=== PATIENT | female | born 2000 | race Caucasian/White ===

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

== ENCOUNTER 2019-01-25 10:11 | Emergency (ER) | payer MEDICAID ==
[2019-01-25 10:16] VITALS: BP 126/67
--- NOTE | 2019-01-25 10:25 | ER Document Report ---
HPI - HPI Time Seen by Provider: 01/25/19 10:20 Pain Level: 2 Notes: Patient is a 18-year-old female no significant past medical history who presents complaining of nasal congestion/discharge, intermittent right ear pain, and pressure on the right side of her face that began yesterday. She has been able to eat and drink without difficulty. She is urinating normally and having normal bowel movements. Denies drug allergies. She has not been using any ncgd-[id number] meds for her symptoms. Patient will need a work note today. Denies any headache, fever, neck pain, sore throat, chest pain, palpitations, syncope, cough, shortness of breath, wheeze, dyspnea, abdominal pain, nausea/vomiting/diarrhea, urinary retention, dysuria, hematuria, or rash. - ROS Systems Reviewed and Negative: Yes All other systems reviewed and negative - REPRODUCTIVE Reproductive: DENIES: : Past Medical History - Social History Smoking Status: Never Smoker Family History: Reviewed & Not Pertinent Pulmonary Medical History: Reports: Hx Asthma Renal/ Medical History: Denies: Hx Peritoneal Dialysis GI Medical History: Reports: Hx Gastroesophageal Reflux Disease Vertical Provider Document - CONSTITUTIONAL Agree With Documented VS: Yes Notes: PHYSICAL EXAMINATION: GENERAL: Well-appearing, well-nourished and in no acute distress. A&Ox4. Answers questions appropriately. Moves comfortably w/o notable distress HEAD: Atraumatic, normocephalic. EYES: Pupils equal round and reactive to light, extraocular movements intact, sclera anicteric, conjunctiva are normal. ENT: EAC clear b/l. TM's intact b/l without erythema, fluid, or perforation. Nares patent and with clear discharge. oropharynx no erythema without exudates. No tonsilar hypertrophy without erythema or exudate. No palatine shift. Uvula midline. No tongue protrusion. No drooling, hoarseness, or airway compromise. Moist mucous membranes. No sinus tenderness. NECK: Normal range of motion, supple without lymphadenopathy. No rigidity/meningismus. LUNGS: Breath sounds clear to auscultation bilaterally and equal. No wheezes rales or rhonchi. No retractions HEART: Regular rate and rhythm without murmurs, rubs, gallops. NEUROLOGICAL: Normal speech, normal gait. PSYCH: Normal mood, normal affect. SKIN: Warm, Dry, normal turgor, no rashes or lesions noted. - INFECTION CONTROL TRAVEL OUTSIDE OF THE [place] IN LAST 30 DAYS: No Course - Re-evaluation Re-evalutation: 01/25/19 10:26 Patient is an afebrile, well-hydrated, 18-year-old female who presents with acute URI, suspect viral. I do suspect her right ear pain to be from eustachian tube dysfunction. There is no evidence of other superimposed infection. Vitals are acceptable without significant tachycardia, tachypnea, or hypoxia. PE is otherwise unremarkable. Patient is nontoxic-appearing and is tolerating p.o. without difficulty. No further work-up warranted. Low suspicion for any meningitis, sepsis, peritonsillar/pharyngeal abscess, respiratory compromise, severe dehydration, otitis media, mastoiditis, or other emergent systemic condition at this time. Patient is aware this condition can change from initial presentation and she needs to monitor symptoms closely. Conservative measures otherwise for symptoms. Recheck with your PCM in 3-5 days. Return to the ED with any worsening/concerning symptoms otherwise as reviewed in discharge. Patient is in agreement. - Vital Signs Vital signs: Temp Pulse Resp BP Pulse Ox 98.1 F 93 H 16 126/67 H 99 01/25/19 10:15 01/25/19 10:15 01/25/19 10:15 01/25/19 10:15 01/25/19 10:15 Discharge - Discharge Clinical Impression: Acute URI Condition: Stable Disposition: HOME, SELF-CARE Instructions: Upper Respiratory Illness ([facility]) Additional Instructions: Maintain adequate fluid intake tylenol/ibuprofen as needed alternating every 3 hours for fever/body ache over the counter cold medication as needed for symptoms Humidified air may help Wash your hands regularly Wear a mask if/when coughing F/u: with your PCM in 3-5 days for a recheck Return to the ED with any fever, altered mental status/behavior, chest pain, palpitations, syncope, headache, neck pain/stiffness, shortness of breath, chest pains, wheezing, drooling, trouble swallowing/breathing, abdominal pain, n/v/d, rash, or worsening/concerning symptoms otherwise. Forms: Elevated Blood Pressure, Return to Work Referrals: REBECCA LIMA MD [Primary Care Provider] - Follow up as needed
== END 2019-01-25 10:30 | disposition home or self-care (01) ==
LOC: ER 10:11
DX: J06.9 Acute upper respiratory infection, unspecified (principal); R09.81 Nasal congestion; R09.89 Other specified symptoms and signs involving the circulatory and respiratory systems; H92.01 Otalgia, right ear; J45.909 Unspecified asthma, uncomplicated
CPT/HCPCS: 99283

== ENCOUNTER 2019-06-24 21:50 | Inpatient (IN) | payer MEDICAID ==
[2019-06-24] MEDS ORDERED: ONDANSETRON 4 MG TAB.RAPDIS PO ONE (22:18)
[2019-06-24] MEDS ORDERED: ACETAMINOPHEN 325 MG TABLET PO ONE (22:18)
--- NOTE | 2019-06-24 22:21 | ER Document Report ---
ED Medical Screen (RME) - General Chief Complaint: Fever Stated Complaint: FEVER/STOMACH CRAMPS Time Seen by Provider: 06/24/19 22:16 Primary Care Provider: REBECCA LIMA MD [Primary Care Provider] - Follow up as needed Notes: Patient is a 18-year-old female who presents the emergency department with a chief complaint of lower abdominal pain. Patient states that it is on both sides. She started to have her pain couple of days ago. She has been taking ibuprofen to help with her pain. She also states that she has had an on-and-off fever. Exam: Soft mildly tender mid lower abdomen. I have greeted and performed a rapid initial assessment of this patient. A comprehensive ED assessment and evaluation of the patient, analysis of test results and completion of medical decision making process will be conducted by an additional ED providers. TRAVEL OUTSIDE OF THE [place] IN LAST 30 DAYS: No - Related Data Allergies/Adverse Reactions: No Known Allergies Allergy (Verified 01/25/19 10:13) Past Medical History Pulmonary Medical History: Reports: Hx Asthma Renal/ Medical History: Denies: Hx Peritoneal Dialysis GI Medical History: Reports: Hx Gastroesophageal Reflux Disease Physical Exam - Vital signs Vitals: Temp Pulse Resp BP Pulse Ox 102.6 F H 112 H 20 122/56 L 97 06/24/19 22:04 06/24/19 22:04 06/24/19 22:04 06/24/19 22:04 06/24/19 22:04 Course - Vital Signs Vital signs: Temp Pulse Resp BP Pulse Ox 102.6 F H 112 H 20 122/56 L 97 06/24/19 22:04 06/24/19 22:04 06/24/19 22:04 06/24/19 22:04 06/24/19 22:04 Doctor's Discharge - Discharge Referrals: REBECCA LIMA MD [Primary Care Provider] - Follow up as needed
[2019-06-24 23:13] LABS: ABSOLUTE LYMPHOCYTES (AUTO) 1.7 10^3/uL (0.5-4.7); ABSOLUTE MONOCYTES (AUTO) 0.7 10^3/uL (0.1-1.4); ABSOLUTE NEUT (AUTO) 14.3 10^3/uL (1.7-8.2); BASOPHILS % (AUTO) 0.2 % (0-2); EOSINOPHILS % (AUTO) 0.1 % (0-6); HEMATOCRIT 38.3 % (36.0-47.0); LYMPHOCYTES % (AUTO) 10.1 % (13-45); MEAN CORPUSCULAR VOLUME 88 fl (80-97); MONOCYTES % (AUTO) 4.2 % (3-13); PLATELET COUNT 386 10^3/uL (150-450); RED BLOOD COUNT 4.34 10^6/uL (3.72-5.28); RED CELL DISTRIBUTION WIDTH 13.3 % (11.5-14.0); SEGMENTED NEUTROPHILS % (AUTO) 85.4 % (42-78); TOTAL CELLS COUNTED % (AUTO) 100 %; WHITE BLOOD COUNT 16.7 10^3/uL (4.0-10.5)
[2019-06-24 23:20] LABS: APPEARANCE,URINE CLOUDY; BILIRUBIN,URINE NEGATIVE (NEGATIVE); COLOR,URINE AMBER; GLUCOSE, URINE NEGATIVE (NEGATIVE); KETONES,URINE NEGATIVE (NEGATIVE); LEUKOCYTE ESTERASE,URINE SMALL (NEGATIVE); NITRITE,URINE NEGATIVE (NEGATIVE); PROTEIN,URINE 30 mg/dL (NEGATIVE); URINE SPECIFIC GRAVITY 1.026
[2019-06-24 23:31] LABS: ALBUMIN 3.9 g/dL (3.7-5.6); ALKALINE PHOSPHATASE 83 U/L (50-135); ANION GAP 12 (5-19); ASPARTATE AMINO TRANSFERASE 24 U/L (5-30); BILIRUBIN,DIRECT 0.3 mg/dL (0.0-0.4); BILIRUBIN,TOTAL 0.6 mg/dL (0.2-1.3); BLOOD UREA NITROGEN 9 mg/dL (7-20); CALCIUM 9.6 mg/dL (8.4-10.2); CARBON DIOXIDE 27 mmol/L (22-30); CHLORIDE 99 mmol/L (98-107); GLUCOSE 100 mg/dL (75-110); POTASSIUM 3.8 mmol/L (3.6-5.0); TOTAL PROTEIN 6.9 g/dL (6.3-8.2)
[2019-06-25] MEDS ORDERED: NORMAL SALINE 1000 ML 1,000 ML IV ONE (04:19)
[2019-06-25] MEDS ORDERED: KETOROLAC TROMETHAMINE INJ/PF 30 MG/1 ML SDV IV ONE (04:20)
[2019-06-25] MEDS ORDERED: ONDANSETRON HCL INJ/PF 4 MG/2 ML SDV IV ONE (04:20)
--- NOTE | 2019-06-25 04:26 | ER Document Report ---
ED GI/ - General Chief Complaint: Abdominal Pain Stated Complaint: FEVER/STOMACH CRAMPS Time Seen by Provider: 06/24/19 22:16 Mode of Arrival: Ambulatory Information source: Patient Notes: 18-year-old female presented to ED for complaint of lower abdominal pain nausea vomiting fever diarrhea. She states the cramping started last week for fever nausea vomiting and diarrhea started this week. TRAVEL OUTSIDE OF THE [place] IN LAST 30 DAYS: No - HPI Patient complains to provider of: Abdominal pain, Diarrhea, Vomiting, Other - Fe vince Onset: Other - 2 days Timing/Duration: Intermittent Quality of pain: Cramping Severity at maximum: Moderate Severity in ED: Moderate Pain Level: 3 Location: LLQ, RLQ LMP: Week ago Associated symptoms: Chills, Diarrhea, Fever, Nausea, Vomiting Exacerbated by: Denies Relieved by: Denies Similar symptoms previously: Yes Recently seen / treated by doctor: No - Related Data Allergies/Adverse Reactions: No Known Allergies Allergy (Verified 01/25/19 10:13) Home Medications: motrin Past Medical History - General Information source: Patient - Social History Smoking Status: Never Smoker Chew tobacco use (# tins/day): No Smoking Education Provided: No Frequency of alcohol use: None Drug Abuse: None Lives with: Family Family History: Reviewed & Not Pertinent Patient has suicidal ideation: No Patient has homicidal ideation: No - Past Medical History Cardiac Medical History: Reports: None Pulmonary Medical History: Reports: Hx Asthma EENT Medical History: Reports: None Neurological Medical History: Reports: None Endocrine Medical History: Reports: None Renal/ Medical History: Reports: None Malignancy Medical History: Reports: None GI Medical History: Reports: Hx Gastroesophageal Reflux Disease Musculoskeletal Medical History: Reports None Skin Medical History: Reports None Psychiatric Medical History: Reports: None Traumatic Medical History: Reports: None Infectious Medical History: Reports: None Surgical Hx: Negative Past Surgical History: Reports: None - Immunizations Immunizations up to date: Yes Hx Diphtheria, Pertussis, Tetanus Vaccination: Yes Review of Systems - Review of Systems Constitutional: Chills, Fever, Recent illness Cardiovascular: No symptoms reported Respiratory: No symptoms reported Gastrointestinal: Abdominal pain, Diarrhea, Nausea, Vomiting Genitourinary: No symptoms reported Female Genitourinary: No symptoms reported Musculoskeletal: No symptoms reported Skin: No symptoms reported Hematologic/Lymphatic: No symptoms reported Neurological/Psychological: No symptoms reported -: Yes All other systems reviewed and negative Physical Exam - Vital signs Vitals: Temp Pulse Resp BP Pulse Ox 102.6 F H 112 H 20 122/56 L 97 06/24/19 22:04 06/24/19 22:04 06/24/19 22:04 06/24/19 22:04 06/24/19 22:04 Interpretation: Normal - General General appearance: Appears well, Alert - HEENT Head: Normocephalic, Atraumatic Eyes: Normal Pupils: PERRL - Respiratory Respiratory status: No respiratory distress Chest status: Nontender Breath sounds: Normal Chest palpation: Normal - Cardiovascular Rhythm: Regular Heart sounds: Normal auscultation Murmur: No - Abdominal Inspection: Normal Distension: No distension Bowel sounds: Normal Tenderness: Tender - Right and left lower quadrant worse on the right Organomegaly: No organomegaly - Genitourinary External exam: Normal Speculum exam: Vaginal discharge Vaginal bleeding: None Bimanuel exam: Normal - Back Back: Normal, Nontender - Extremities General upper extremity: Normal inspection, Nontender, Normal color, Normal ROM, Normal temperature General lower extremity: Normal inspection, Nontender, Normal color, Normal ROM, Normal temperature, Normal weight bearing. No: Donte's sign - Neurological Neuro grossly intact: Yes Cognition: Normal Orientation: AAOx4 [place] Coma Scale Eye Opening: Spontaneous Brianna Coma Scale Verbal: Oriented [place] Coma Scale Motor: Obeys Commands Brianna Coma Scale Total: 15 Speech: Normal Motor strength normal: LUE, RUE, LLE, RLE Sensory: Normal - Psychological Associated symptoms: Normal affect, Normal mood - Skin Skin Temperature: Warm Skin Moisture: Dry Skin Color: Normal Course - Re-evaluation Re-evalutation: 06/25/19 09:06 Dr. Summers consulted due to the bilateral ovarian abscesses. Patient was admitted GC and chlamydia were sent but were not resulted yet. Patient did come in with elevated fever of 102.6 had elevated white count CT showed the abscesses. Patient did not have ovarian or cervical tenderness on exam after she was treated with Toradol. - Vital Signs Vital signs: Temp Pulse Resp BP Pulse Ox 98.8 F 83 16 105/71 98 06/25/19 00:52 06/25/19 00:52 06/25/19 00:52 06/25/19 00:52 06/25/19 00:52 - Laboratory Result Diagrams: 06/24/19 22:20 06/24/19 22:20 Laboratory results interpreted by me: 06/24/19 06/24/19 22:20 22:20 WBC 16.7 H Lymph % (Auto) 10.1 L Absolute Neuts (auto) 14.3 H Seg Neutrophils % 85.4 H Urine Protein 30 H Urine Urobilinogen 4.0 H Ur Leukocyte Esterase SMALL H - Diagnostic Test Radiology reviewed: Image reviewed, Reports reviewed Discharge - Discharge Clinical Impression: Bilateral tubal abscesses Disposition: ADMITTED INPATIENT Admitting Provider: [facility] Unit Admitted: Medical Floor - 2ND FLOOR
[2019-06-25 05:49] LABS: A TYPE INFLUENZA AG NEGATIVE (NEGATIVE); B INFLUENZA AG NEGATIVE (NEGATIVE)
--- NOTE | 2019-06-25 06:27 | RADIOLOGY REPORT (SQ) ---
EXAM DESCRIPTION: CT ABDOMEN PELVIS WITH IV CONTRAST COMPLETED DATE/TME: 06/25/2019 04:20 CLINICAL HISTORY: 18 years Female, Right lower quadrant abdominal pain fever nausea a Comparison: None. Technique: IV contrast. Coronal and sagittal reformat. This exam was performed according to our departmental dose-optimization program, which includes automated exposure control, adjustment of the mA and/or kV according to patient size and/or use of iterative reconstruction technique. [facility]: Dose Right [facility]: CareDose [facility]: Dose Right [facility]: Teradose 4D [facility]: ChurchPairing LIMITATIONS: None Findings: Inflamed complex cystic collections of the pelvis measures 7 x 8.8 x 2.5 cm at the right paracentral pelvis and 2.6 x 2.3 x 1.8 cm at the left paracentral pelvis adjacent to the uterus probably due to tubo-ovarian abscess/PID. Consider CT surveillance using IV and oral contrast. No ascites. No pneumoperitoneum. Likely normal appendix partially discerned. No gross evidence of gallbladder inflammation, hepatobiliary obstruction, or portal vein defect. No bowel obstruction. No hydronephrosis or hydroureter. No renal/ureteral stone. No evidence of abdominal aortic aneurysm. No gross evidence of thecal sac/cord or nerve root compression. Inferior thorax, liver, gallbladder, pancreas, spleen, adrenals, renal system, gastrointestinal tract, lymphatics, vasculature, and musculoskeleton appear otherwise unremarkable. IMPRESSION: Inflamed complex cystic collections of the pelvis measures 7 x 8.8 x 2.5 cm predominantly at the right paracentral pelvis uterus probably due to tubo-ovarian abscess/PID. Consider CT surveillance using IV and oral contrast.pelvis probably due to tubo-ovarian abscess/PID.
[2019-06-25 07:42] LABS: T.VAGINALIS (WET MOUNT) NO TRICHOMONAS SEEN; WBCS (WET MOUNT) 1+ WBCS SEEN; YEAST (WET MOUNT) NO YEAST SEEN
[2019-06-25 07:43] LABS: BACTERIA (WET MOUNT) 3+ BACTERIA SEEN; EPITHELIALS (WET MOUNT) 3+ EPITHELIALS SEEN; RBCS (WET MOUNT) FEW RBCS SEEN
[2019-06-25] MEDS ORDERED: RINGERS SOLUTION,LACTATED 1,000 ML IV ONE (08:08)
[2019-06-25] MEDS ORDERED: OXYCODONE-ACETAMINOPHEN 5-325 MG TABLET PO PRN (08:21)
[2019-06-25] MEDS ORDERED: ACETAMINOPHEN 325 MG TABLET PO PRN (08:21)
[2019-06-25] MEDS ORDERED: IBUPROFEN 800 MG TABLET PO SCH (08:30)
[2019-06-25] MEDS ORDERED: CEFOXITIN INJ 2 GM VIAL IV SCH (08:30)
[2019-06-25 09:08] LABS: CHLAM PCR NOT DETECTED (NOT DETECT)
--- NOTE | 2019-06-25 10:29 | PDOC H&P ---
History of Present Illness Admission Date/PCP: 06/25/19 07:40 REBECCA LIMA MD Patient complains of: Pelvic pain History of Present Illness: DON FRENCH is a 18 year old female G0 She presents to the ER with pelvic pain and was found to have TOAs. She is a dmitted for IV antibiotics. Past Medical History LMP: Week ago Gynecological Infection: No Cardiac Medical History: Reports: None Pulmonary Medical History: Reports: Asthma EENT Medical History: Reports: None Neurological Medical History: Reports: None Endocrine Medical History: Reports: None Renal/ Medical History: Reports: None Malignancy Medical History: Reports: None GI Medical History: Reports: Gastroesophageal Reflux Disease Musculoskeltal Medical History: Reports: None Skin Medical History: Reports: None Psychiatric Medical History: Reports: None Traumatic Medical History: Reports: None Infectious Medical History: Reports: None Past Surgical History Past Surgical History: Reports: None Social History Lives with: Family Smoking Status: Never Smoker - Advance Directive Resuscitation Status: Full Code Family History Family History: Reviewed & Not Pertinent Parental Family History Reviewed: Yes Children Family History Reviewed: Yes Sibling(s) Family History Reviewed.: Yes Medication/Allergy Home Medications: No Home Medications 06/25/19 Allergies/Adverse Reactions: No Known Allergies Allergy (Verified 01/25/19 10:13) Physical Exam - Physical Exam Vital Signs: Temp Pulse Resp BP Pulse Ox 98.6 F 88 16 114/57 L 98 06/25/19 09:17 06/25/19 09:17 06/25/19 09:17 06/25/19 09:17 06/25/19 09:17 Intake & Output 06/24/19 06/25/19 06/26/19 06:59 06:59 06:59 Intake Total 1000 Balance 1000 Weight 68 kg General appearance: PRESENT: no acute distress, cooperative Head exam: PRESENT: atraumatic Cardiovascular exam: PRESENT: RRR. ABSENT: diastolic murmur, rubs, systolic murmur Pulses: PRESENT: normal dorsalis pedis pul, +2 pedal pulses bilateral Vascular exam: PRESENT: normal capillary refill GI/Abdominal exam: PRESENT: normal bowel sounds, soft. ABSENT: distended, guarding, mass, organolmegaly, rebound, tenderness Rectal exam: PRESENT: deferred Gentrourinary exam: PRESENT: other - deferred. see CT scan Extremities exam: PRESENT: full ROM. ABSENT: calf tenderness, clubbing, pedal edema Musculoskeletal exam: PRESENT: ambulatory Neurological exam: PRESENT: alert, awake, oriented to person, oriented to place, oriented to time, oriented to situation, CN II-XII grossly intact. ABSENT: motor sensory deficit Psychiatric exam: PRESENT: appropriate affect, normal mood. ABSENT: homicidal ideation, suicidal ideation Skin exam: PRESENT: dry, intact, warm. ABSENT: cyanosis, rash Result Laboratory Results: 06/24/19 22:20 06/24/19 22:20 06/24/19 06/24/19 06/24/19 22:20 22:20 22:20 WBC 16.7 H RBC 4.34 Hgb 13.0 Hct 38.3 MCV 88 MCH 30.0 MCHC 34.0 RDW 13.3 Plt Count 386 Seg Neutrophils % 85.4 H Sodium 138.3 Potassium 3.8 Chloride 99 Carbon Dioxide 27 Anion Gap 12 BUN 9 Creatinine 0.59 Est GFR ( Amer) > 60 Glucose 100 Lactic Acid Calcium 9.6 Total Bilirubin 0.6 AST 24 Alkaline Phosphatase 83 Total Protein 6.9 Albumin 3.9 Lipase 26.2 Serum HCG, Qual Urine Color TAVARES Urine Appearance CLOUDY Urine pH 7.0 Ur Specific [place] 1.026 Urine Protein 30 H Urine Glucose (UA) NEGATIVE Urine Ketones NEGATIVE Urine Blood NEGATIVE Urine Nitrite NEGATIVE Ur Leukocyte Esterase SMALL H Urine WBC (Auto) 10 Urine RBC (Auto) 7 06/24/19 06/25/19 22:20 09:04 WBC RBC Hgb Hct MCV MCH MCHC RDW Plt Count Seg Neutrophils % Sodium Potassium Chloride Carbon Dioxide Anion Gap BUN Creatinine Est GFR ( Amer) Glucose Lactic Acid 0.6 L Calcium Total Bilirubin AST Alkaline Phosphatase Total Protein Albumin Lipase Serum HCG, Qual NEGATIVE Urine Color Urine Appearance Urine pH Ur Specific [place] Urine Protein Urine Glucose (UA) Urine Ketones Urine Blood Urine Nitrite Ur Leukocyte Esterase Urine WBC (Auto) Urine RBC (Auto) Impressions: Abdomen/Pelvis CT 06/25/19 04:20 IMPRESSION: Inflamed complex cystic collections of the pelvis measures 7 x 8.8 x 2.5 cm predominantly at the right paracentral pelvis uterus probably due to tubo-ovarian abscess/PID. Consider CT surveillance using IV and oral contrast.pelvis probably due to tubo-ovarian abscess/PID. Assessment & Plan - Diagnosis (1) Tubo-ovarian abscess Is this a current diagnosis for this admission?: Yes - Plan Summary Plan Summary: Plan IV antibiotics for 36 to 48 hours followed by home antibiotics.
[2019-06-25] MEDS: METRONIDAZOLE 500 MG/NS RTU 500 MG/100 ML RTUPB IV SCH ×2 (10:31→21:08)
[2019-06-25] MEDS: DOCUSATE SODIUM 100 MG CAPSULE PO SCH ×2 (10:31→17:14)
[2019-06-25] MEDS: IBUPROFEN 800 MG TABLET PO SCH ×3 (10:33→21:07)
[2019-06-25] MEDS ORDERED: INFLUENZA QUAD (6MOS+) 2019-20 VAC 0.5 ML SYR IM ONE (11:04)
[2019-06-25] MEDS: DOXYCYCLINE HYCLATE 100 MG TABLET PO SCH ×2 (13:27→21:08)
[2019-06-25] MEDS: CEFOXITIN SODIUM 2 GM in DEXTROSE 5%-WATER 100 ML IV SCH ×2 (13:27→17:13)
[2019-06-25] MEDS: RINGERS SOLUTION,LACTATED 1,000 ML IV PRN (13:35)
[2019-06-25] MEDS: OXYCODONE-ACETAMINOPHEN 5-325 MG TABLET PO PRN (21:07)
[2019-06-26] MEDS: CEFOXITIN SODIUM 2 GM in DEXTROSE 5%-WATER 100 ML IV SCH ×5 (00:01→23:53)
[2019-06-26] MEDS: RINGERS SOLUTION,LACTATED 1,000 ML IV PRN ×3 (00:01→20:10)
[2019-06-26] MEDS: IBUPROFEN 800 MG TABLET PO SCH ×3 (05:28→21:35)
[2019-06-26] MEDS: DOXYCYCLINE HYCLATE 100 MG TABLET PO SCH ×2 (09:04→21:36)
[2019-06-26] MEDS: DOCUSATE SODIUM 100 MG CAPSULE PO SCH ×2 (09:05→18:13)
[2019-06-26] MEDS: ONDANSETRON HCL INJ/PF 4 MG/2 ML SDV IV PRN (09:27)
--- NOTE | 2019-06-26 09:47 | PDOC PROGRESS REPORT ---
Subjective Progress Note for:: 06/26/19 Subjective:: pt states her pain is better Reason For Visit: BILATERAL TOA Physical Exam - Physical Exam Vital Signs: Temp Pulse Resp BP Pulse Ox 98.7 F 108 H 16 114/62 97 06/26/19 07:44 06/26/19 07:44 06/26/19 07:44 06/26/19 07:44 06/26/19 07:44 Intake & Output 06/25/19 06/26/19 06/27/19 06:59 06:59 06:59 Intake Total 1000 1500 1000 Balance 1000 1500 1000 Weight 68 kg 72.5 kg General appearance: PRESENT: no acute distress Respiratory exam: PRESENT: clear to auscultation esteban Cardiovascular exam: PRESENT: RRR GI/Abdominal exam: PRESENT: soft Result Laboratory Results: 06/24/19 22:20 06/24/19 22:20 Impressions: Abdomen/Pelvis CT 06/25/19 04:20 IMPRESSION: Inflamed complex cystic collections of the pelvis measures 7 x 8.8 x 2.5 cm predominantly at the right paracentral pelvis uterus probably due to tubo-ovarian abscess/PID. Consider CT surveillance using IV and oral contrast.pelvis probably due to tubo-ovarian abscess/PID. Assessment & Plan - Diagnosis (1) Tubo-ovarian abscess Is this a current diagnosis for this admission?: Yes - Time Time Spent with patient: Less than 15 minutes Level of Care: MEDICAL Medications reviewed and adjusted accordingly: Yes Anticipated discharge: Other Within: Other - Plan Summary Plan Summary: continue IV antibiotics for 24 hours post febrile repeat CBC in am
[2019-06-26] MEDS: OXYCODONE-ACETAMINOPHEN 5-325 MG TABLET PO PRN ×2 (11:17→18:12)
[2019-06-26] MEDS: METRONIDAZOLE 500 MG/NS RTU 500 MG/100 ML RTUPB IV SCH ×2 (11:20→21:36)
[2019-06-27] MEDS: OXYCODONE-ACETAMINOPHEN 5-325 MG TABLET PO PRN (00:01)
[2019-06-27] MEDS: IBUPROFEN 800 MG TABLET PO SCH (05:25)
[2019-06-27] MEDS: CEFOXITIN SODIUM 2 GM in DEXTROSE 5%-WATER 100 ML IV SCH ×2 (05:26→13:08)
[2019-06-27] MEDS: RINGERS SOLUTION,LACTATED 1,000 ML IV PRN (07:21)
[2019-06-27] MEDS: ONDANSETRON HCL INJ/PF 4 MG/2 ML SDV IV PRN (08:03)
[2019-06-27 08:23] LABS: ABSOLUTE BASOPHILS # (AUTO) 0.1 10^3/uL (0.0-0.2); ABSOLUTE EOSINOPHILS # (AUTO) 0.1 10^3/uL (0.0-0.6); ABSOLUTE LYMPHOCYTES (AUTO) 2.6 10^3/uL (0.5-4.7); ABSOLUTE MONOCYTES (AUTO) 0.5 10^3/uL (0.1-1.4); ABSOLUTE NEUT (AUTO) 6.3 10^3/uL (1.7-8.2); BASOPHILS % (AUTO) 0.5 % (0-2); EOSINOPHILS % (AUTO) 1.2 % (0-6); HEMATOCRIT 34.7 % (36.0-47.0); HEMOGLOBIN 12.4 g/dL (12.0-15.5); MEAN CORPUSCULAR HEMOGLOBIN 31.5 pg (27.0-33.4); MEAN CORPUSCULAR HGB CONC 35.8 g/dL (32.0-36.0); MEAN CORPUSCULAR VOLUME 88 fl (80-97); MONOCYTES % (AUTO) 5.3 % (3-13); PLATELET COUNT 395 10^3/uL (150-450); RED BLOOD COUNT 3.95 10^6/uL (3.72-5.28); RED CELL DISTRIBUTION WIDTH 12.9 % (11.5-14.0); TOTAL CELLS COUNTED % (AUTO) 100 %; WHITE BLOOD COUNT 9.6 10^3/uL (4.0-10.5)
--- NOTE | 2019-06-27 09:51 | PDOC DISCHARGE SUMMARY ---
Impression - Admit/DC Date/PCP Admission Date/Primary Care Provider: 06/25/19 07:40 REBECCA LIMA MD Discharge Date: 06/27/19 - Discharge Diagnosis (1) Tubo-ovarian abscess Is this a current diagnosis for this admission?: Yes - Assessment Summary: admitted with probable tuboovarian abscess vs salpingitis. has receieved 48 hours of antibiotics. pt indicates she feels much better. pain is reduced to cramping only. tolerating regular diet. - Additional Information Resuscitation Status: Full Code Discharge Diet: As Tolerated Discharge Activity: Activity As Tolerated, Pelvic Rest, Walk Frequently Referrals: REBECCA LIMA MD [Primary Care Provider] - Follow up as needed Prescriptions: Cephalexin Monohydrate [Keflex 500 mg Capsule] 500 mg PO QID #20 capsule Ibuprofen [Motrin 800 mg Tablet] 800 mg PO Q8 #60 tablet Doxycycline Hyclate [Vibramycin 100 mg Tablet] 100 mg PO Q12 #20 tablet Home Medications: Cephalexin Monohydrate [Keflex 500 mg Capsule] 500 mg PO QID #20 capsule 06/27/19 Doxycycline Hyclate [Vibramycin 100 mg Tablet] 100 mg PO Q12 #20 tablet 06/27/19 Ibuprofen [Motrin 800 mg Tablet] 800 mg PO Q8 #60 tablet 06/27/19 History of Present Illiness History of Present Illness: DON FRENCH is a 18 year old female Physical Exam - Physical Exam Vital Signs: Temp Pulse Resp BP Pulse Ox 97.9 F 70 18 121/61 100 06/27/19 08:30 06/27/19 08:30 06/27/19 08:30 06/27/19 08:30 06/27/19 08:30 Intake & Output 06/26/19 06/27/19 06/28/19 06:59 06:59 06:59 Intake Total 1500 4100 Balance 1500 4100 Weight 72.5 kg 72.6 kg Results Laboratory Results: WBC 9.6 10^3/uL (4.0-10.5) 06/27/19 07:42 RBC 3.95 10^6/uL (3.72-5.28) 06/27/19 07:42 Hgb 12.4 g/dL (12.0-15.5) 06/27/19 07:42 Hct 34.7 % (36.0-47.0) L 06/27/19 07:42 MCV 88 fl (80-97) 06/27/19 07:42 MCH 31.5 pg (27.0-33.4) 06/27/19 07:42 MCHC 35.8 g/dL (32.0-36.0) 06/27/19 07:42 RDW 12.9 % (11.5-14.0) 06/27/19 07:42 Plt Count 395 10^3/uL (150-450) 06/27/19 07:42 Lymph % (Auto) 27.0 % (13-45) 06/27/19 07:42 [place] % (Auto) 5.3 % (3-13) 06/27/19 07:42 Eos % (Auto) 1.2 % (0-6) 06/27/19 07:42 Baso % (Auto) 0.5 % (0-2) 06/27/19 07:42 Absolute Neuts (auto) 6.3 10^3/uL (1.7-8.2) 06/27/19 07:42 Absolute Lymphs (auto) 2.6 10^3/uL (0.5-4.7) 06/27/19 07:42 Absolute Monos (auto) 0.5 10^3/uL (0.1-1.4) 06/27/19 07:42 Absolute Eos (auto) 0.1 10^3/uL (0.0-0.6) 06/27/19 07:42 Absolute Basos (auto) 0.1 10^3/uL (0.0-0.2) 06/27/19 07:42 Seg Neutrophils % 66.0 % (42-78) 06/27/19 07:42 Sodium 138.3 mmol/L (137-145) 06/24/19 22:20 Potassium 3.8 mmol/L (3.6-5.0) 06/24/19 22:20 Chloride 99 mmol/L (98-107) 06/24/19 22:20 Carbon Dioxide 27 mmol/L (22-30) 06/24/19 22:20 Anion Gap 12 (5-19) 06/24/19 22:20 BUN 9 mg/dL (7-20) 06/24/19 22:20 Creatinine 0.59 mg/dL (0.52-1.25) 06/24/19 22:20 Est GFR ( Amer) > 60 (>60) 06/24/19 22:20 Est GFR (MDRD) Non-Af > 60 (>60) 06/24/19 22:20 Glucose 100 mg/dL (75-110) 06/24/19 22:20 Lactic Acid 0.6 mmol/L (0.7-2.1) L 06/25/19 09:04 Calcium 9.6 mg/dL (8.4-10.2) 06/24/19 22:20 Total Bilirubin 0.6 mg/dL (0.2-1.3) 06/24/19 22:20 Direct Bilirubin 0.3 mg/dL (0.0-0.4) 06/24/19 22:20 Neonat Total Bilirubin Not Reportable 06/24/19 22:20 Neonat Direct Bilirubin Not Reportable 06/24/19 22:20 Neonat Indirect Bili Not Reportable 06/24/19 22:20 AST 24 U/L (5-30) 06/24/19 22:20 ALT 25 U/L (<35) 06/24/19 22:20 Alkaline Phosphatase 83 U/L (50-135) 06/24/19 22:20 Total Protein 6.9 g/dL (6.3-8.2) 06/24/19 22:20 Albumin 3.9 g/dL (3.7-5.6) 06/24/19 22:20 Lipase 26.2 U/L (23-300) 06/24/19 22:20 Serum HCG, Qual NEGATIVE (NEGATIVE) 06/24/19 22:20 Urine Color TAVARES 06/24/19 22:20 Urine Appearance CLOUDY 06/24/19 22:20 Urine pH 7.0 (5.0-9.0) 06/24/19 22:20 Ur Specific [place] 1.026 06/24/19 22:20 Urine Protein 30 mg/dL (NEGATIVE) H 06/24/19 22:20 Urine Glucose (UA) NEGATIVE mg/dL (NEGATIVE) 06/24/19 22:20 Urine Ketones NEGATIVE mg/dL (NEGATIVE) 06/24/19 22:20 Urine Blood NEGATIVE (NEGATIVE) 06/24/19 22:20 Urine Nitrite NEGATIVE (NEGATIVE) 06/24/19 22:20 Urine Bilirubin NEGATIVE (NEGATIVE) 06/24/19 22:20 Urine Urobilinogen 4.0 mg/dL (<2.0) H 06/24/19 22:20 Ur Leukocyte Esterase SMALL (NEGATIVE) H 06/24/19 22:20 Urine WBC (Auto) 10 /HPF 06/24/19 22:20 Urine RBC (Auto) 7 /HPF 06/24/19 22:20 Urine Bacteria (Auto) 1+ /HPF 06/24/19 22:20 Squamous Epi Cells Auto 15 /HPF 06/24/19 22:20 Urine Mucus (Auto) MOD /LPF 06/24/19 22:20 Urine Ascorbic Acid NEGATIVE (NEGATIVE) 06/24/19 22:20 Epi Cells (Wet Prep) 3+ EPITHELIALS SEEN 06/25/19 07:25 Bacteria (Wet Prep) 3+ BACTERIA SEEN 06/25/19 07:25 Trichomonas (Wet Prep) NO TRICHOMONAS SEEN 06/25/19 07:25 Vaginal WBC 1+ WBCS SEEN 06/25/19 07:25 Vaginal RBC FEW RBCS SEEN 06/25/19 07:25 Vaginal Yeast NO YEAST SEEN 06/25/19 07:25 Chlamydia DNA (PCR) NOT DETECTED (NOT DETECT) 06/25/19 07:25 Influenza A (Rapid) NEGATIVE (NEGATIVE) 06/25/19 05:00 Influenza B (Rapid) NEGATIVE (NEGATIVE) 06/25/19 05:00 N.gonorrhoeae DNA (PCR) NOT DETECTED (NOT DETECT) 06/25/19 07:25 Impressions: Abdomen/Pelvis CT 06/25/19 04:20 IMPRESSION: Inflamed complex cystic collections of the pelvis measures 7 x 8.8 x 2.5 cm predominantly at the right paracentral pelvis uterus probably due to tubo-ovarian abscess/PID. Consider CT surveillance using IV and oral contrast.pelvis probably due to tubo-ovarian abscess/PID. Stroke Is this a Stroke Patient?: No Acute Heart Failure - Is this a Heart Failure Patient?: No
[2019-06-27] MEDS: DOCUSATE SODIUM 100 MG CAPSULE PO SCH (10:17)
[2019-06-27] MEDS: METRONIDAZOLE 500 MG/NS RTU 500 MG/100 ML RTUPB IV SCH (10:17)
[2019-06-27] MEDS: DOXYCYCLINE HYCLATE 100 MG TABLET PO SCH (10:17)
[2019-06-27 12:54] VITALS: BP 119/60
== END 2019-06-27 13:35 | disposition home or self-care (01) | DRG 759 ==
LOC: ER 21:50 → EH 06-25 07:40 → 2N 06-25 09:30
PROVIDERS: ADMIT Obstetrics & Gynecology; ATTEND Obstetrics & Gynecology
PROC: 3E0234Z Introduction of Serum, Toxoid and Vaccine into Muscle, Percutaneous Approach (ICD-10-PCS; principal; 2019-06-27)
DX: N70.93 Salpingitis and oophoritis, unspecified (principal); R10.9 Unspecified abdominal pain; Z23 Encounter for immunization
CPT/HCPCS: 36415; 74177; 80053; 81001; 83605; 83690; 84703; 85025; 87040; 87210; 87491; 87591; 87804; 90686; 96361; 96374; 96375; 99285; J0694; J1885; J2405; J3490; J7030; J7060; J7120; S0119

== ENCOUNTER 2019-07-05 21:54 | Emergency (ER) | payer MEDICAID ==
[2019-07-05 22:59] LABS: APPEARANCE,URINE SLIGHTLY-CLOUDY; BILIRUBIN,URINE NEGATIVE (NEGATIVE); COLOR,URINE YELLOW; GLUCOSE, URINE NEGATIVE (NEGATIVE); KETONES,URINE NEGATIVE (NEGATIVE); PROTEIN,URINE NEGATIVE (NEGATIVE); URINE SPECIFIC GRAVITY 1.025; UROBILINOGEN,URINE NEGATIVE mg/dL (<2.0)
--- NOTE | 2019-07-06 01:09 | ER Document Report ---
ED GI/ - General Chief Complaint: Cyst Stated Complaint: VAGINAL PAIN Time Seen by Provider: 07/05/19 22:19 Primary Care Provider: REBECCA LIMA MD [Primary Care Provider] - Follow up as needed Mode of Arrival: Ambulatory Information source: Patient Notes: 18-year-old female presented to ED for complaint of left lower quadrant pelvic tenderness. She has an enlarged lymph node in her left pelvic area.. She will admitted to [facility] 2 weeks ago with a diagnosis pelvic inflammatory disease and was told that she needs to return to the ED for any concerning symptoms. She does have an appointment with [facility] on Sunday for follow-up for her PID. TRAVEL OUTSIDE OF THE [place] IN LAST 30 DAYS: No - HPI Patient complains to provider of: Pelvic pain Onset: Yesterday Timing/Duration: Intermittent Quality of pain: Sharp Severity at maximum: Mild Severity in ED: Mild Pain Level: 1 Location: Other - Left pelvic area Associated symptoms: Other - Small lump painful left pelvic area. denies: Vaginal discharge Exacerbated by: Other - Palpation Relieved by: Denies Similar symptoms previously: Yes Recently seen / treated by doctor: Yes - Related Data Allergies/Adverse Reactions: No Known Allergies Allergy (Verified 07/05/19 22:03) Past Medical History - General Information source: Patient - Social History Smoking Status: Never Smoker Frequency of alcohol use: None Drug Abuse: None Lives with: Family Family History: Reviewed & Not Pertinent Patient has suicidal ideation: No Patient has homicidal ideation: No - Past Medical History Cardiac Medical History: Reports: None Pulmonary Medical History: Reports: Hx Asthma EENT Medical History: Reports: None Neurological Medical History: Reports: None Endocrine Medical History: Reports: None Renal/ Medical History: Reports: Hx Pelvic Inflammatory Disease Malignancy Medical History: Reports: None GI Medical History: Reports: Hx Gastroesophageal Reflux Disease Musculoskeletal Medical History: Reports None Skin Medical History: Reports None Psychiatric Medical History: Reports: None Traumatic Medical History: Reports: None Infectious Medical History: Reports: None Surgical Hx: Negative Past Surgical History: Reports: None - Immunizations Immunizations up to date: Yes Hx Diphtheria, Pertussis, Tetanus Vaccination: Yes Review of Systems - Review of Systems Constitutional: No symptoms reported EENT: No symptoms reported Cardiovascular: No symptoms reported Respiratory: No symptoms reported Gastrointestinal: No symptoms reported Genitourinary: No symptoms reported Female Genitourinary: Other - Small left groin/pelvic area Musculoskeletal: No symptoms reported Skin: No symptoms reported Hematologic/Lymphatic: No symptoms reported Neurological/Psychological: No symptoms reported -: Yes All other systems reviewed and negative Physical Exam - Vital signs Vitals: Temp Pulse BP Pulse Ox 98.5 F 94 H 125/70 99 07/05/19 22:08 07/05/19 22:08 07/05/19 22:08 07/05/19 22:08 Interpretation: Normal - General General appearance: Appears well, Alert - HEENT Head: Normocephalic, Atraumatic Eyes: Normal Pupils: PERRL - Respiratory Respiratory status: No respiratory distress Chest status: Nontender Breath sounds: Normal Chest palpation: Normal - Cardiovascular Rhythm: Regular Heart sounds: Normal auscultation Murmur: No - Abdominal Inspection: Normal Distension: No distension Bowel sounds: Normal Tenderness: Nontender Organomegaly: No organomegaly - Genitourinary External exam: Other - Left groin painful lump probable lymph node - Back Back: Normal, Nontender - Extremities General upper extremity: Normal inspection, Nontender, Normal color, Normal ROM, Normal temperature General lower extremity: Normal inspection, Nontender, Normal color, Normal ROM, Normal temperature, Normal weight bearing. No: Donte's sign - Neurological Neuro grossly intact: Yes Cognition: Normal Orientation: AAOx4 Tamms Coma Scale Eye Opening: Spontaneous Tamms Coma Scale Verbal: Oriented Tamms Coma Scale Motor: Obeys Commands Tamms Coma Scale Total: 15 Speech: Normal Motor strength normal: LUE, RUE, LLE, RLE Sensory: Normal - Psychological Associated symptoms: Normal affect, Normal mood - Skin Skin Temperature: Warm Skin Moisture: Dry Skin Color: Normal Course - Re-evaluation Re-evalutation: 07/06/19 02:57 Discussed labs with patient and written report of labs given to patient. Patient was treated with Flagyl in the emergency room and discharged home with prescription for Flagyl and instructed to please follow-up with [facility] as previously instructed. Patient verbalized understanding and agreement with treatment plan patient was discharged home. - Vital Signs Vital signs: Temp Pulse Resp BP Pulse Ox 98.4 F 73 20 120/69 99 07/06/19 01:37 07/06/19 01:37 07/06/19 01:37 07/06/19 01:37 07/06/19 01:37 - Laboratory Laboratory results interpreted by me: 07/05/19 22:39 Urine Ascorbic Acid 40 H Discharge - Discharge Clinical Impression: Bacterial vaginosis Condition: Stable Disposition: HOME, SELF-CARE Additional Instructions: VAGINOSIS, BACTERIAL: Your exam shows you have bacterial vaginosis. This condition is due to an overgrowth of bacteria in the vagina. Symptoms may include vaginal itching or pain, a smelly discharge, and sometimes burning with urination. Normally this is not transmitted by sexual contact. Vaginosis can be treated with oral or topical antibiotics. Metronidazole (Flagyl) pills are usually effective. Topical vaginal creams include Cleocin and Metro-Gel. You should avoid sexual contact until your symptoms are all better. Call the doctor if you develop pelvic pain, fever, or problems with urination, or if you don't improve as expected. METRONIDAZOLE: Metronidazole (Flagyl) has been prescribed. This medication is used to kill a type of bacteria called anaerobes, and protozoan parasites such as trichomonas and Giardia. Flagyl often causes a metallic taste in the mouth and mild nausea. Do not use alcohol in any form with Flagyl (including alcohol in medication elixirs). Flagyl interacts with alcohol to cause flushing, palpitations, headache, stomach cramps, and vomiting. Do not use Flagyl if you are taking Antabuse (disulfiram). Call the doctor at once if you develop rash, shortness of breath, itching, or lightheadedness. FOLLOW-UP CARE: If you have been referred to a physician for follow-up care, call the physicians office for an appointment as you were instructed or within the next two days. If you experience worsening or a significant change in your symptoms, notify the physician immediately or return to the Emergency Department at any time for re-evaluation. Prescriptions: Metronidazole [Flagyl 500 mg Tablet] 500 mg PO BID #14 tablet Referrals: REBECCA LIMA MD [Primary Care Provider] - Follow up as needed
[2019-07-06 01:46] LABS: CHLAM PCR NOT DETECTED (NOT DETECT)
[2019-07-06 02:20] LABS: BACTERIA (WET MOUNT) 4+ BACTERIA SEEN; EPITHELIALS (WET MOUNT) 4+ EPITHELIALS SEEN; RBCS (WET MOUNT) FEW RBCS SEEN; T.VAGINALIS (WET MOUNT) NO TRICHOMONAS SEEN; WBCS (WET MOUNT) FEW WBCS SEEN; YEAST (WET MOUNT) NO YEAST SEEN
[2019-07-06] MEDS ORDERED: METRONIDAZOLE 500 MG TABLET PO ONE (02:26)
[2019-07-06 03:14] VITALS: BP 132/65
== END 2019-07-06 03:15 | disposition home or self-care (01) ==
LOC: ER 21:54
DX: N76.0 Acute vaginitis (principal); B96.89 Other specified bacterial agents as the cause of diseases classified elsewhere; R10.2 Pelvic and perineal pain; R10.32 Left lower quadrant pain; R59.9 Enlarged lymph nodes, unspecified; J45.909 Unspecified asthma, uncomplicated
CPT/HCPCS: 99283; 87210; 81025; 81001; 87491; 87591; J3490

== ENCOUNTER 2019-07-12 20:51 | Emergency (ER) | payer MEDICAID ==
--- NOTE | 2019-07-12 21:30 | ER Document Report ---
ED Medical Screen (RME) - General Chief Complaint: Arm Problem Stated Complaint: ARM SWELLING/PAIN Time Seen by Provider: 07/12/19 21:23 Primary Care Provider: REBECCA LIMA MD [Primary Care Provider] - Follow up as needed Notes: Patient presents with left arm pain and swelling for the past 2 days. Patient states that she was treated for PID 2 weeks ago and did have an IV in the left hand. Patient with no surrounding erythema to the dorsum of the hand although does have erythema to the volar aspect of the left arm with streaking that extends up the left upper arm. Patient states she has been taking Motrin 3 ti mes a day without any improvement of her symptoms. Patient states she just finished doxycycline and is finishing up Flagyl currently. I have greeted and performed a rapid initial assessment of this patient. A comprehensive ED assessment and evaluation of the patient, analysis of test results and completion of the medical decision making process will be conducted by additional ED providers. TRAVEL OUTSIDE OF THE [place] IN LAST 30 DAYS: No - Related Data Allergies/Adverse Reactions: No Known Allergies Allergy (Verified 07/05/19 22:03) Home Medications: flagyl. ibuprofen prn pain Past Medical History Pulmonary Medical History: Reports: Hx Asthma Renal/ Medical History: Reports: Hx Pelvic Inflammatory Disease. Denies: Hx Peritoneal Dialysis GI Medical History: Reports: Hx Gastroesophageal Reflux Disease - Immunizations Immunizations up to date: Yes Hx Diphtheria, Pertussis, Tetanus Vaccination: Yes Physical Exam - Vital signs Vitals: Temp Pulse Resp BP Pulse Ox 99.6 F 96 H 16 131/67 H 97 07/12/19 20:55 07/12/19 20:55 07/12/19 20:55 07/12/19 20:55 07/12/19 20:55 - General Notes: Left upper extremity tenderness, warmth and swelling Course - Vital Signs Vital signs: Temp Pulse Resp BP Pulse Ox 99.6 F 96 H 16 131/67 H 97 07/12/19 20:55 07/12/19 20:55 07/12/19 20:55 07/12/19 20:55 07/12/19 20:55 Doctor's Discharge - Discharge Referrals: REBECCA LIMA MD [Primary Care Provider] - Follow up as needed
[2019-07-12 21:54] LABS: ABSOLUTE BASOPHILS # (AUTO) 0.1 10^3/uL (0.0-0.2); ABSOLUTE EOSINOPHILS # (AUTO) 0.2 10^3/uL (0.0-0.6); ABSOLUTE LYMPHOCYTES (AUTO) 3.1 10^3/uL (0.5-4.7); ABSOLUTE MONOCYTES (AUTO) 0.6 10^3/uL (0.1-1.4); ABSOLUTE NEUT (AUTO) 3.8 10^3/uL (1.7-8.2); BASOPHILS % (AUTO) 0.7 % (0-2); EOSINOPHILS % (AUTO) 3.2 % (0-6); HEMATOCRIT 37.6 % (36.0-47.0); HEMOGLOBIN 13.5 g/dL (12.0-15.5); LYMPHOCYTES % (AUTO) 39.9 % (13-45); MEAN CORPUSCULAR HEMOGLOBIN 31.3 pg (27.0-33.4); MEAN CORPUSCULAR HGB CONC 35.9 g/dL (32.0-36.0); MEAN CORPUSCULAR VOLUME 87 fl (80-97); MONOCYTES % (AUTO) 7.5 % (3-13); PLATELET COUNT 436 10^3/uL (150-450); RED BLOOD COUNT 4.31 10^6/uL (3.72-5.28); RED CELL DISTRIBUTION WIDTH 13.1 % (11.5-14.0); SEGMENTED NEUTROPHILS % (AUTO) 48.7 % (42-78); TOTAL CELLS COUNTED % (AUTO) 100 %; WHITE BLOOD COUNT 7.9 10^3/uL (4.0-10.5)
[2019-07-12 22:08] LABS: ANION GAP 9 (5-19); BLOOD UREA NITROGEN 9 mg/dL (7-20); CALCIUM 9.7 mg/dL (8.4-10.2); CARBON DIOXIDE 28 mmol/L (22-30); CHLORIDE 102 mmol/L (98-107); GLUCOSE 106 mg/dL (75-110); POTASSIUM 3.7 mmol/L (3.6-5.0)
[2019-07-12] MEDS ORDERED: KETOROLAC TROMETHAMINE 60 MG/2 ML SDV IM ONE (22:33)
--- NOTE | 2019-07-12 22:48 | ER Document Report ---
ED Extremity Problem, Upper - General Chief Complaint: Arm Problem Stated Complaint: ARM SWELLING/PAIN Time Seen by Provider: 07/12/19 21:23 Primary Care Provider: REBECCA LIMA MD [Primary Care Provider] - Follow up as needed Information source: Patient Notes: 18-year-old female presents to the emergency department with a history of left upper extremity pain. She states that she had an IV while hospitalized for approximately 4 days earlier and the month. Since that time she has developed pain and swelling in the left upper extremity with tenderness along the area where the IV infused. She denies other related symptoms or pain. She also denies fever, weakness or loss of function. TRAVEL OUTSIDE OF THE [place] IN LAST 30 DAYS: No - Related Data Allergies/Adverse Reactions: No Known Allergies Allergy (Verified 07/12/19 23:35) Home Medications: flagyl. ibuprofen prn pain Past Medical History - General Information source: Patient - Social History Smoking Status: Former Smoker Family History: Reviewed & Not Pertinent Patient has suicidal ideation: No Patient has homicidal ideation: No Pulmonary Medical History: Reports: Hx Asthma Renal/ Medical History: Reports: Hx Pelvic Inflammatory Disease. Denies: Hx Peritoneal Dialysis GI Medical History: Reports: Hx Gastroesophageal Reflux Disease - Immunizations Immunizations up to date: Yes Hx Diphtheria, Pertussis, Tetanus Vaccination: Yes Physical Exam - Vital signs Vitals: Temp Pulse Resp BP Pulse Ox 99.6 F 96 H 16 131/67 H 97 07/12/19 20:55 07/12/19 20:55 07/12/19 20:55 07/12/19 20:55 07/12/19 20:55 - Notes Notes: PHYSICAL EXAMINATION: Physical Exam: General: Well-nourished well-developed 18-year-old woman in no acute distress HEENT: NC/AT, pupils equal round and reactive to light, MM moist,nares clear, Neck: supple, no adenopathy, no masses. Lungs: clear, no wheezing, no rales no rhonchi CVS: Regular rate and rhythm no murmur gallop or rub Abdomen: Soft active nontender, no masses, no hepatosplenomegaly Ext: Left upper extremity: Swelling and tenderness in the lateral aspect of the upper arm forearm, neurovascular intact Neuro: Alert and responsive, moving all 4 extremities on command, cranial nerves intact. Skin: Intact no open lesions, no rash PSYCH: Normal mood, normal affect. Course - Re-evaluation Re-evalutation: 07/12/19 22:52 Patient was noted to have superficial phlebitis involving the left upper extremity celiac vein. She has no neurologic involvement and no excessive swe lling. After some discussion, felt that the treatment with NSAIDs and warm compresses would be the treatment of choice. Patient will follow-up with her primary care doctor on Sunday for reevaluation and or additional treatment if needed. - Vital Signs Vital signs: Temp Pulse Resp BP Pulse Ox 99.6 F 96 H 16 131/67 H 97 07/12/19 20:55 07/12/19 20:55 07/12/19 20:55 07/12/19 20:55 07/12/19 20:55 - Laboratory Result Diagrams: 07/12/19 21:32 07/12/19 21:32 Discharge - Discharge Clinical Impression: Superficial thrombophlebitis of left upper extremity Condition: Good Disposition: HOME, SELF-CARE Additional Instructions: You were diagnosed with superficial thrombophlebitis of the left arm a small segment of the celiac vein is involved. The use of warm compresses and anti- inflammatory medications is to treatment. You may also supplement Tylenol for pain if needed. Please follow-up with your primary care doctor for a recheck on Sunday or Sunday of next week. Return to the emergency department if you run fever have increasing swelling or other concerns. Prescriptions: Naproxen [Naprosyn] 500 mg PO BID #20 tablet Forms: Return to Work Referrals: REBECCA LIMA MD [Primary Care Provider] - Follow up as needed
--- NOTE | 2019-07-12 23:34 | RADIOLOGY REPORT (SQ) ---
EXAM DESCRIPTION: US EXTREMITY VEINS UNILATERAL COMPLETED DATE/TME: 07/12/2019 21:27 CLINICAL HISTORY: 18 years, Female, LUE pain, swelling COMPARISON: None. TECHNIQUE: Real time multiplanar grayscale, color Doppler, spectral Doppler imaging of the left upper extremity LIMITATIONS: None. FINDINGS: 30 images. The internal jugular vein, subclavian vein, axillary vein, brachial veins, radial vein, and ulnar vein are patent. Superficial thrombophlebitis of the central cephalic vein. Basilic vein appears patent IMPRESSION: No evidence of deep venous thrombosis. Superficial thrombophlebitis of the cephalic vein copyright 2010 [employer]- All Rights Reserved
[2019-07-13 01:00] VITALS: BP 131/60
== END 2019-07-13 01:00 | disposition home or self-care (01) ==
LOC: ER 20:51
DX: I80.8 Phlebitis and thrombophlebitis of other sites (principal); M79.602 Pain in left arm
CPT/HCPCS: 99284; 96372; 36415; 85025; 80048; 93971; J1885